=== PATIENT | female | born 1965 | race Caucasian/White ===

== ENCOUNTER 2016-11-26 15:31 | Emergency (ER) | payer OTHER ==
[~2016-11-26] VITALS: Ht 165.1 cm; Wt 63.6 kg
[~2016-11-26 15:31] MED LIST: AMITRIPTYLINE100 M1 PO; FLEXERIL5 MG PO; LEVOTHROID,SYN0.1 MG PO; LEVOTHYROXINE; LEVOTHYROXINE100 MCG PO; ULTRAM50 MG PO; VICODIN ES 71 TABLET PO; ZANTAC 7575 MG PO; [UNRECOGNIZED DRUG - OTHER]
[2016-11-26] MEDS ORDERED: AUGMENTIN875 MG PO (17:32)
[2016-11-26] MEDS ORDERED: NORCO 5/3251 TABLET PO (17:32)
[2016-11-26 17:55] VITALS: BP 112/64
== END 2016-11-26 17:56 | disposition home or self-care (01) ==
LOC: EME 15:31
PROC: 2W3CX1Z Immobilization of Right Lower Arm using Splint (ICD-10-PCS; principal; 2016-11-26)
DX: S51.831A Puncture wound without foreign body of right forearm, initial encounter (principal); W54.0XXA Bitten by dog, initial encounter; Y92.007 Garden or yard of unspecified non-institutional (private) residence as the place of occurrence of the external cause
CPT/HCPCS: 73090; 99281; 99285; J0696; J2270; J7050

== ENCOUNTER → 2017-08-13 | Outpatient (CLI) | payer OTHER ==
[~2017-08-13] VITALS: Ht 165.1 cm; Wt 67.1 kg
[~2017-08-13] MED LIST changes: +AUGMENTIN875 MG PO; +ENDOCET 7.5-321 EACH PO; +LIPITOR80 MG PO; +MOBIC15 MG PO; +NEURONTIN600 MG PO; +NORCO 5/3251 TABLET PO
[2017-08-13 10:13] LABS: HEMATOCRIT 35.4 % (36.0-46.0); HEMOGLOBIN 11.7 G/DL (11.9-15.5); MCH 32.9 PG (29.0-34.0); MCHC 33.1 G/DL (30.0-36.0); MCV 99.4 FL (83-99); PLATELET COUNT 201 K/uL (156-360); RBC DIS.WIDTH-CV 13.2 % (11.8-14.6); RBC DIS.WIDTH-SD 48.6 % (39-53); RED BLOOD COUNT 3.56 M/uL (3.80-5.20); WHITE BLOOD COUNT 4.5 K/uL (4.1-10.2)
[2017-08-13 10:43] LABS: CHLORIDE 107 MEQ/L (99-109); POTASSIUM 3.7 MEQ/L (3.7-5.4); SODIUM 140 MEQ/L (136-147)
[2017-08-13 10:49] LABS: CREATININE 0.8 MG/DL (0.6-1.3); GFR ESTIMATE (CALCULATED) > 59 mL/min/; GLUCOSE 100 mg/dL (70-99); UREA NITROGEN (BUN) 12 mg/dL (9-23)
== END | disposition home or self-care (01) ==
LOC: AMB 09:02
PROVIDERS: Internal Medicine
DX: K29.70 Gastritis, unspecified, without bleeding (principal); D12.3 Benign neoplasm of transverse colon; R19.4 Change in bowel habit; R68.81 Early satiety; R63.4 Abnormal weight loss; K64.8 Other hemorrhoids; R14.0 Abdominal distension (gaseous); G89.29 Other chronic pain; M54.9 Dorsalgia, unspecified; R05 Cough; E03.9 Hypothyroidism, unspecified; Z90.49 Acquired absence of other specified parts of digestive tract; F17.210 Nicotine dependence, cigarettes, uncomplicated; Z82.49 Family history of ischemic heart disease and other diseases of the circulatory system; Z88.6 Allergy status to analgesic agent; Z79.891 Long term (current) use of opiate analgesic
CPT/HCPCS: 80048; 82948; 85027; 88305; 88342 TC; 93005; J2250; J3010

== ENCOUNTER → 2017-08-30 | Outpatient (CLI) | payer OTHER | END | disposition home or self-care (01) | LOC: NUC 07:00 | DX: R68.81 Early satiety (principal); R11.0 Nausea | CPT/HCPCS: 78264; A9541 ==

== ENCOUNTER 2018-03-22 10:40 | Emergency (ER) | payer OTHER ==
[~2018-03-22] VITALS: Ht 165.1 cm; Wt 64.5 kg
[2018-03-22 11:53] LABS: HEMOGLOBIN 13.6 G/DL (11.9-15.5); MCH 33.3 PG (29.0-34.0); MCHC 33.2 G/DL (30.0-36.0); MCV 100.2 FL (83-99); PLATELET COUNT 193 K/uL (156-360); RBC DIS.WIDTH-CV 12.7 % (11.8-14.6); RBC DIS.WIDTH-SD 47.6 % (39-53); RED BLOOD COUNT 4.09 M/uL (3.80-5.20); WHITE BLOOD COUNT 6.8 K/uL (4.1-10.2)
[2018-03-22 12:09] LABS: ALBUMIN 4.2 g/dL (3.2-4.8); CHLORIDE 102 mEq/L (99-109); POTASSIUM 3.6 mEq/L (3.7-5.4); SODIUM 140 mEq/L (136-147)
[2018-03-22 12:11] LABS: GLUCOSE 115 mg/dL (70-99)
[2018-03-22 12:12] LABS: TOTAL PROTEIN 6.9 g/dL (6.4-8.3)
[2018-03-22 12:13] LABS: TOTAL BILIRUBIN 0.6 mg/dL (0.0-1.0)
[2018-03-22 12:15] LABS: ALKALINE PHOSPHATASE 60 IU/L (3-129); CREATININE 0.8 mg/dL (0.6-1.3); GFR ESTIMATE (CALCULATED) > 59 mL/min/
[2018-03-22 12:16] LABS: UREA NITROGEN (BUN) 17 mg/dL (9-23)
[2018-03-22 12:17] LABS: AST (GOT) 18 IU/L (2-34)
[2018-03-22 12:18] LABS: ALT (GPT) 20 IU/L (3-49)
[2018-03-22 12:26] LABS: QUANTITATIVE HCG < 4.0 MIU/ML
[2018-03-22 13:03] LABS: ALBUMIN 4.3 g/dL (3.2-4.8); CHLORIDE 102 mEq/L (99-109); POTASSIUM 4.1 mEq/L (3.7-5.4); SODIUM 140 mEq/L (136-147)
[2018-03-22 13:05] LABS: GLUCOSE 103 mg/dL (70-99); TOTAL PROTEIN 6.7 g/dL (6.4-8.3)
[2018-03-22 13:07] LABS: TOTAL BILIRUBIN 0.5 mg/dL (0.0-1.0)
[2018-03-22 13:09] LABS: ALKALINE PHOSPHATASE 63 IU/L (3-129); CREATININE 0.8 mg/dL (0.6-1.3); GFR ESTIMATE (CALCULATED) > 59 mL/min/
[2018-03-22 13:10] LABS: UREA NITROGEN (BUN) 16 mg/dL (9-23)
[2018-03-22 13:11] LABS: AST (GOT) 20 IU/L (2-34)
[2018-03-22 13:12] LABS: ALT (GPT) 21 IU/L (3-49); LIPASE 8 U/L (1.0-51.0)
[2018-03-22 13:44] LABS: APPEARANCE CLEAR ((CLEAR)); BILIRUBIN NEGATIVE; BLOOD MODERATE; COLOR STRAW ((YELLOW)); GLUCOSE (STRIP) NEGATIVE; KETONES NEGATIVE; LEUKOCYTES NEGATIVE; NITRITE NEGATIVE; PROTEIN (STRIP) NEGATIVE; SPECIFIC GRAVITY 1.008 (1.000-1.030); UROBILINOGEN 0.2 MG/DL (0.2-1.0)
[2018-03-22 13:48] LABS: BACTERIA 1+ /HPF; EPITHELIAL CELLS RARE /HPF; MUCUS TRACE /LPF; RED BLOOD CELLS 0-5 /HPF (0-5); UCUL ADDED? NO; WHITE BLOOD CELLS 0-5 /HPF (0-5)
[2018-03-22] MEDS ORDERED: ZOFRAN ODT4 MG PO (15:07)
[2018-03-22 16:35] VITALS: BP 148/82
== END 2018-03-22 16:44 | disposition home or self-care (01) ==
LOC: EME 10:40
PROVIDERS: Emergency Medicine
DX: R10.84 Generalized abdominal pain (principal); R11.2 Nausea with vomiting, unspecified; K59.00 Constipation, unspecified; J02.9 Acute pharyngitis, unspecified; D25.9 Leiomyoma of uterus, unspecified; Z90.49 Acquired absence of other specified parts of digestive tract; I25.2 Old myocardial infarction; Z83.3 Family history of diabetes mellitus; F17.200 Nicotine dependence, unspecified, uncomplicated
CPT/HCPCS: 74177; 80053; 81003; 83690; 84702; 85027; 99281; 99285; J2405; J3010; J7040